=== PATIENT | female | born 1955 | race Caucasian/White ===

== ENCOUNTER → 2018-05-20 | Outpatient (CLI) | payer BC ==
[2018-05-20 09:36] LABS: Basophils # (auto) 0.1 uL; Basophils % (auto) 0.7 % (0.0-2.0); Eosinophils # (auto) 0.2 uL; Eosinophils % (auto) 2.3 % (0.0-7.0); Hematocrit 46.1 % (36.0-46.0); Hemoglobin 15.7 g/dL (12.2-16.2); Lymphocytes # (auto) 2.1 uL; Lymphocytes % (auto) 24.4 % (10.0-50.0); Mean Corpuscular Hemoglobin 30.5 pg (28.0-32.0); Mean Corpuscular Volume 89.5 fL (80.0-100.0); Monocytes # (auto) 0.5 uL; Monocytes % (auto) 6.3 % (0.0-12.0); Neutrophils # (auto) 5.7 uL; Neutrophils % (auto) 66.3 % (37.0-80.0); Nucleated Red Blood Cells % 0.1 %; Platelet Count (auto) 253 10^3/uL (140-450); Red Blood Cells 5.15 10^6/uL (4.0-5.20); Red Cell Distribution Width 13.4 % (11.8-14.3); White Blood Cell 8.7 10^3/uL (4.4-10.8)
[2018-05-20 10:22] LABS: Albumin 3.9 g/dL (3.4-5.0); Bilirubin, Total 0.5 mg/dL (0.2-1.0); Calcium 9.1 mg/dL (8.5-10.1); Potassium 4.5 mmol/L (3.5-5.1); Total Protein 7.3 g/dL (6.4-8.2)
== END | disposition home or self-care (01) ==
LOC: LAB 08:01
PROVIDERS: ATTEND Physician Assistant
DX: Z00.01 Encounter for general adult medical examination with abnormal findings (principal); E78.1 Pure hyperglyceridemia; M54.2 Cervicalgia; M19.90 Unspecified osteoarthritis, unspecified site; G89.29 Other chronic pain
CPT/HCPCS: 36415; 80053; 80061; 85025

== ENCOUNTER → 2018-09-30 | Outpatient (CLI) | payer BC, MEDICARE ==
[2018-09-30 08:08] LABS: Basophils # (auto) 0.1 uL; Basophils % (auto) 0.7 % (0.0-2.0); Eosinophils # (auto) 0.2 uL; Eosinophils % (auto) 2.7 % (0.0-7.0); Hematocrit 45.9 % (36.0-46.0); Hemoglobin 15.5 g/dL (12.2-16.2); Lymphocytes # (auto) 2.1 uL; Lymphocytes % (auto) 23.3 % (10.0-50.0); Mean Corpuscular Hemoglobin 29.9 pg (28.0-32.0); Mean Corpuscular Hgb Conc. 33.7 g/dL (32.0-36.0); Mean Corpuscular Volume 88.6 fL (80.0-100.0); Monocytes # (auto) 0.7 uL; Monocytes % (auto) 8.1 % (0.0-12.0); Neutrophils # (auto) 5.8 uL; Neutrophils % (auto) 65.2 % (37.0-80.0); Nucleated Red Blood Cells % 0.1 %; Platelet Count (auto) 265 10^3/uL (140-450); Red Blood Cells 5.18 10^6/uL (4.0-5.20); Red Cell Distribution Width 13.1 % (11.8-14.3); White Blood Cell 8.9 10^3/uL (4.4-10.8)
[2018-09-30 08:44] LABS: Albumin 3.8 g/dL (3.4-5.0); BUN/Creatinine Ratio 30.7; Bilirubin, Total 0.5 mg/dL (0.2-1.0); Calcium 9.3 mg/dL (8.5-10.1); Total Protein 7.3 g/dL (6.4-8.2)
== END | disposition home or self-care (01) ==
LOC: LAB 07:24
PROVIDERS: ATTEND Physician Assistant
DX: E78.2 Mixed hyperlipidemia (principal); G51.0 Bell's palsy; M54.2 Cervicalgia; M19.90 Unspecified osteoarthritis, unspecified site
CPT/HCPCS: 36415; 80053; 80061; 85025

== ENCOUNTER → 2019-12-13 | Outpatient (CLI) | payer BC ==
[2019-12-13 10:08] LABS: Basophils # (auto) 0.1 10 ^3/uL (0-0.2); Basophils % (auto) 0.6 % (0.0-2.0); Eosinophils # (auto) 0.1 10 ^3/uL (0-0.8); Eosinophils % (auto) 0.4 % (0.0-7.0); Hematocrit 46.5 % (36.0-46.0); Hemoglobin 15.5 g/dL (12.2-16.2); Lymphocytes # (auto) 2.3 10 ^3/uL (0.4-5.4); Mean Corpuscular Hemoglobin 29.5 pg (28.0-32.0); Mean Corpuscular Hgb Conc. 33.3 g/dL (32.0-36.0); Mean Corpuscular Volume 88.4 fL (80.0-100.0); Monocytes # (auto) 0.8 10 ^3/uL (0-1.3); Monocytes % (auto) 6.3 % (0.0-12.0); Neutrophils # (auto) 9.6 10 ^3/uL (1.6-8.6); Neutrophils % (auto) 74.7 % (37.0-80.0); Nucleated Red Blood Cells % 0.1 %; Platelet Count (auto) 307 10^3/uL (140-450); Red Blood Cells 5.26 10^6/uL (4.0-5.20); Red Cell Distribution Width 12.7 % (11.8-14.3); White Blood Cell 12.9 10^3/uL (4.4-10.8)
[2019-12-13 11:22] LABS: Albumin 3.9 g/dL (3.4-5.0); Calcium 8.8 mg/dL (8.5-10.1); Potassium 4.1 mmol/L (3.5-5.1)
[2019-12-13 11:27] LABS: Bilirubin, Total 0.4 mg/dL (0.2-1.0); Total Protein 7.6 g/dL (6.4-8.2)
== END | disposition home or self-care (01) ==
LOC: LAB 09:46
PROVIDERS: ATTEND Physician Assistant
DX: E78.2 Mixed hyperlipidemia (principal); M19.90 Unspecified osteoarthritis, unspecified site; R73.03 Prediabetes; M81.6 Localized osteoporosis [Lequesne]
CPT/HCPCS: 36415; 80053; 80061; 83036; 85025

== ENCOUNTER 2020-04-04 17:39 | Emergency (ER) | payer MEDICARE, BC ==
[~2020-04-04] VITALS: Ht 160 cm; Wt 85.3 kg
[2020-04-04 19:26] LABS: Urine Bacteria MANY /hpf (None Seen); Urine Blood 1+ /uL (Negative); Urine Mucus FEW (None Seen); Urine Specific Gravity 1.021 (1.001-1.035); Urine WBC 11 /hpf (0 - 5)
[2020-04-04] MEDS ORDERED: KETOROLAC TROMETH 60MG/2ML VIAL IM ONE (21:30)
[2020-04-04] MEDS ORDERED: CLINDAMYCIN 600 MG/4 ML VL IM ONE (21:30)
[2020-04-04 22:07] VITALS: BP 161/86
== END 2020-04-05 00:33 | disposition home or self-care (01) ==
LOC: ER 17:39
DX: N39.0 Urinary tract infection, site not specified (principal); F17.200 Nicotine dependence, unspecified, uncomplicated; M19.90 Unspecified osteoarthritis, unspecified site; Z88.0 Allergy status to penicillin; Z88.2 Allergy status to sulfonamides
CPT/HCPCS: 81001; 96372; 99284; J1885

== ENCOUNTER → 2021-02-13 | Outpatient (CLI) | payer MEDICARE, BC ==
[2021-02-13 09:16] LABS: Basophils # (auto) 0.1 10 ^3/uL (0-0.2); Basophils % (auto) 0.7 % (0.0-2.0); Eosinophils # (auto) 0.1 10 ^3/uL (0-0.8); Eosinophils % (auto) 1.5 % (0.0-7.0); Hematocrit 45.3 % (36.0-46.0); Hemoglobin 15.9 g/dL (12.2-16.2); Lymphocytes % (auto) 19.9 % (10.0-50.0); Mean Corpuscular Hemoglobin 30.9 pg (28.0-32.0); Mean Corpuscular Hgb Conc. 35.1 g/dL (32.0-36.0); Mean Corpuscular Volume 87.9 fL (80.0-100.0); Monocytes # (auto) 0.6 10 ^3/uL (0-1.3); Monocytes % (auto) 6.5 % (0.0-12.0); Neutrophils % (auto) 71.4 % (37.0-80.0); Platelet Count (auto) 247 10^3/uL (140-450); Red Blood Cells 5.15 10^6/uL (4.0-5.20); Red Cell Distribution Width 13.1 % (11.8-14.3); White Blood Cell 9.9 10^3/uL (4.4-10.8)
[2021-02-13 09:46] LABS: Albumin 3.8 g/dL (3.4-5.0); Calcium 8.9 mg/dL (8.5-10.1); Potassium 4.1 mmol/L (3.5-5.1)
[2021-02-13 09:51] LABS: BUN/Creatinine Ratio 24.7; Bilirubin, Total 0.5 mg/dL (0.2-1.0)
== END | disposition home or self-care (01) ==
LOC: LAB 08:21
PROVIDERS: ATTEND Physician Assistant
DX: I10 Essential (primary) hypertension (principal); E78.2 Mixed hyperlipidemia; R73.03 Prediabetes
CPT/HCPCS: 36415; 80053; 80061; 85025; 85049

== ENCOUNTER 2021-10-18 21:47 | Inpatient (IN) | payer MEDICARE, BC ==
[~2021-10-18] VITALS: Ht 160 cm; Wt 84.5 kg
[2021-10-18] MEDS ORDERED: amLODIPine BESYLATE 5 MG TAB PO ONE (22:00)
[2021-10-18 22:28] LABS: Basophils # (auto) 0 10 ^3/uL (0-0.2); Basophils % (auto) 0.5 % (0.0-2.0); Eosinophils # (auto) 0.1 10 ^3/uL (0-0.8); Eosinophils % (auto) 1.4 % (0.0-7.0); Hematocrit 40.8 % (36.0-46.0); Hemoglobin 14.3 g/dL (12.2-16.2); Lymphocytes % (auto) 20.4 % (10.0-50.0); Mean Corpuscular Hgb Conc. 35.1 g/dL (32.0-36.0); Mean Corpuscular Volume 85.5 fL (80.0-100.0); Monocytes # (auto) 0.6 10 ^3/uL (0-1.3); Monocytes % (auto) 6.5 % (0.0-12.0); Neutrophils # (auto) 7.2 10 ^3/uL (1.6-8.6); Neutrophils % (auto) 71.2 % (37.0-80.0); Nucleated Red Blood Cells % 0.1 %; Red Blood Cells 4.78 10^6/uL (4.0-5.20); Red Cell Distribution Width 12.9 % (11.8-14.3)
[2021-10-18 22:47] LABS: Albumin 3.7 g/dL (3.4-5.0); Calcium 9.1 mg/dL (8.5-10.1); Potassium 3.1 mmol/L (3.5-5.1)
[2021-10-18 22:53] LABS: BUN/Creatinine Ratio 14.3; Bilirubin, Total 0.4 mg/dL (0.2-1.0)
[2021-10-19] MEDS ORDERED: ASPirin 325 MG TAB PO ONE
[2021-10-19] MEDS ORDERED: DEXTROSE (50%) 50ML SYRG IV PRN ×2 (00:15)
[2021-10-19] MEDS ORDERED: ATORVASTATIN 20 MG TAB PO ONE (00:15)
[2021-10-19 01:10] LABS: INR 0.94 (0.9-1.15)
[2021-10-19] MEDS: SODIUM CHLORIDE 0.9% 1,000 ML IV SCH ×3 (03:39→18:45)
[2021-10-19] MEDS ORDERED: LOSA-69 PO (04:05)
[2021-10-19 05:00] VITALS: BP 148/66
[2021-10-19] MEDS: POTASSIUM CHL 10MEQ/50ML 50 ML IV SCH ×6 (06:00→13:00)
[2021-10-19] MEDS: ACCU-CHEK COMFORT CURVE STRIP VI SCH ×4 (06:00→11:59)
[2021-10-19] MEDS: InsuLIN REG 1unit/0.01ml Soln (100units/ml) SC SCH ×2 (06:00→11:59)
[2021-10-19 06:14] LABS: Basophils # (auto) 0.1 10 ^3/uL (0-0.2); Basophils % (auto) 0.7 % (0.0-2.0); Eosinophils # (auto) 0.2 10 ^3/uL (0-0.8); Eosinophils % (auto) 2.1 % (0.0-7.0); Hematocrit 37.5 % (36.0-46.0); Hemoglobin 13.3 g/dL (12.2-16.2); Lymphocytes % (auto) 24.5 % (10.0-50.0); Mean Corpuscular Hemoglobin 30.1 pg (28.0-32.0); Mean Corpuscular Hgb Conc. 35.4 g/dL (32.0-36.0); Monocytes # (auto) 0.7 10 ^3/uL (0-1.3); Neutrophils # (auto) 5.4 10 ^3/uL (1.6-8.6); Neutrophils % (auto) 64.7 % (37.0-80.0); Nucleated Red Blood Cells % 0.1 %; Red Blood Cells 4.41 10^6/uL (4.0-5.20); Red Cell Distribution Width 12.9 % (11.8-14.3); White Blood Cell 8.3 10^3/uL (4.4-10.8)
[2021-10-19 06:42] LABS: Potassium 3.2 mmol/L (3.5-5.1)
[2021-10-19 07:04] LABS: Albumin 3.2 g/dL (3.4-5.0); BUN/Creatinine Ratio 12.4; Bilirubin, Total 0.5 mg/dL (0.2-1.0); Calcium 8.5 mg/dL (8.5-10.1); Total Protein 6.1 g/dL (6.4-8.2)
[2021-10-19 08:15] VITALS: BP 154/59
[2021-10-19] MEDS ORDERED: FAMOTIDINE 20 MG TAB PO SCH (10:00)
[2021-10-19] MEDS: ASPirin-EC 325mg tab PO SCH (10:05)
[2021-10-19] MEDS: ENOXAPARIN SOD 40 MG/0.4 ML SYRINGE SC SCH (10:05)
[2021-10-19] MEDS: NICOTINE 7MG/24HR TOPICAL PATCH TD SCH (10:17)
[2021-10-19 11:45] VITALS: BP 157/65
[2021-10-19] MEDS ORDERED: METOPROLOL TARTRATE 50 MG TAB PO ONE (12:00)
[2021-10-19] MEDS ORDERED: CLOPIDOGREL 300 MG TAB PO ONE (16:15)
[2021-10-19 16:20] VITALS: BP 161/87
[2021-10-19] MEDS: METOPROLOL TARTRATE 50 MG TAB PO SCH (21:15)
[2021-10-19] MEDS: ATORVASTATIN 20 MG TAB PO SCH (21:15)
[2021-10-19 22:20] VITALS: BP 165/78
[2021-10-20] MEDS: SODIUM CHLORIDE 0.9% 1,000 ML IV SCH ×3 (02:41→18:40)
[2021-10-20 05:00] VITALS: BP 166/86
[2021-10-20 09:00] VITALS: BP 163/69
[2021-10-20] MEDS: ENOXAPARIN SOD 40 MG/0.4 ML SYRINGE SC SCH (09:44)
[2021-10-20] MEDS: CLOPIDOGREL BISULFATE 75 MG TAB PO SCH (09:44)
[2021-10-20] MEDS: METOPROLOL TARTRATE 50 MG TAB PO SCH ×2 (09:44→22:19)
[2021-10-20] MEDS: ASPirin-EC 325mg tab PO SCH (09:44)
[2021-10-20 13:00] VITALS: BP 125/53
[2021-10-20] MEDS: NICOTINE 7MG/24HR TOPICAL PATCH TD SCH (15:20)
[2021-10-20 17:00] VITALS: BP 164/82
[2021-10-20 22:00] VITALS: BP 151/69
[2021-10-20] MEDS: ATORVASTATIN 20 MG TAB PO SCH (22:19)
[2021-10-21] MEDS: SODIUM CHLORIDE 0.9% 1,000 ML IV SCH ×3 (03:57→18:45)
[2021-10-21 05:00] VITALS: BP 166/58
[2021-10-21 08:07] LABS: Urine Bacteria NONE SEEN /hpf (None Seen); Urine Blood 2+ /uL (Negative); Urine Specific Gravity 1.009 (1.001-1.035); Urine WBC 2 /hpf (0 - 5)
[2021-10-21 08:36] VITALS: BP 161/85
[2021-10-21] MEDS: NICOTINE 7MG/24HR TOPICAL PATCH TD SCH (10:05)
[2021-10-21] MEDS: CLOPIDOGREL BISULFATE 75 MG TAB PO SCH (10:06)
[2021-10-21] MEDS: ENOXAPARIN SOD 40 MG/0.4 ML SYRINGE SC SCH (10:06)
[2021-10-21] MEDS: ASPirin-EC 325mg tab PO SCH (10:06)
[2021-10-21] MEDS: METOPROLOL TARTRATE 50 MG TAB PO SCH ×2 (10:06→21:49)
[2021-10-21 13:00] VITALS: BP 165/85
[2021-10-21 17:00] VITALS: BP 131/76
[2021-10-21] MEDS ORDERED: cloNIDine HCL 0.1 MG TAB PO PRN (20:30)
[2021-10-21] MEDS: ATORVASTATIN 20 MG TAB PO SCH (21:49)
[2021-10-22] MEDS: SODIUM CHLORIDE 0.9% 1,000 ML IV SCH ×3 (04:27→18:50)
[2021-10-22 05:00] VITALS: BP 121/65
[2021-10-22] MEDS: CLOPIDOGREL BISULFATE 75 MG TAB PO SCH (08:39)
[2021-10-22] MEDS: ASPirin-EC 325mg tab PO SCH (08:39)
[2021-10-22] MEDS: METOPROLOL TARTRATE 50 MG TAB PO SCH ×2 (08:39→21:43)
[2021-10-22] MEDS: NICOTINE 7MG/24HR TOPICAL PATCH TD SCH (08:40)
[2021-10-22] MEDS: ENOXAPARIN SOD 40 MG/0.4 ML SYRINGE SC SCH (08:40)
[2021-10-22 08:46] VITALS: BP 149/77
[2021-10-22 12:34] VITALS: BP 162/82
[2021-10-22 16:41] VITALS: BP 159/72
[2021-10-22] MEDS: ATORVASTATIN 20 MG TAB PO SCH (21:43)
[2021-10-22 23:17] VITALS: BP 159/77
[2021-10-23] MEDS: SODIUM CHLORIDE 0.9% 1,000 ML IV SCH ×2 (02:45→10:45)
[2021-10-23 04:38] VITALS: BP 162/86
[2021-10-23 08:59] VITALS: BP 162/76
[2021-10-23] MEDS: ASPirin-EC 325mg tab PO SCH (09:51)
[2021-10-23] MEDS: CLOPIDOGREL BISULFATE 75 MG TAB PO SCH (09:52)
[2021-10-23] MEDS: METOPROLOL TARTRATE 50 MG TAB PO SCH ×2 (09:52→22:00)
[2021-10-23] MEDS: ENOXAPARIN SOD 40 MG/0.4 ML SYRINGE SC SCH (09:54)
[2021-10-23] MEDS: NICOTINE 7MG/24HR TOPICAL PATCH TD SCH (10:00)
[2021-10-23] MEDS ORDERED: LOPERAMIDE HCL 2 MG CAP/TAB PO PRN (12:15)
[2021-10-23] MEDS ORDERED: LOPERAMIDE HCL 2 MG CAP/TAB PO ONE (12:15)
[2021-10-23 12:42] VITALS: BP 158/65
[2021-10-23] MEDS ORDERED: IODIXANOL 320MG/ML 100ML BTL IV ONE ×3 (12:57→14:34)
[2021-10-23] MEDS ORDERED: IOHEXOL 350 MG/ML 100ML IJ ONE ×2 (12:57→13:00)
[2021-10-23] MEDS ORDERED: GLYCOPYRROLATE 0.2 MG/ML 1ML VIAL ONE ×2 (13:38→14:39)
[2021-10-23] MEDS ORDERED: ATROPINE SULF 1 MG/10ml SYR ONE (13:39)
[2021-10-23] MEDS ORDERED: ANGIOMAX 250 MG VIAL IV ONE (13:40)
[2021-10-23] MEDS ORDERED: SODIUM CHL 0.9% 50 ML ONE (13:40)
[2021-10-23] MEDS ORDERED: EPINEPHrine HCL 1 MG/10 ML SYRG ONE (13:40)
[2021-10-23] MEDS ORDERED: PHENYLEPHRINE HCL 10 MG/ML VL ONE (13:46)
[2021-10-23 22:00] VITALS: BP_SYST 127; BP_SYST 164; BP_DIAS 50; BP_DIAS 75
[2021-10-23] MEDS: ATORVASTATIN 20 MG TAB PO SCH (22:03)
[2021-10-23] MEDS: ACETAMINOPHEN 325 MG TAB PO PRN (22:25)
[2021-10-23] MEDS: hydrALAZINE HCL 20 MG/ML VL IV PRN (22:25)
[2021-10-24] MEDS: SODIUM CHLORIDE 0.9% 1,000 ML IV SCH ×3 (00:49→09:31)
[2021-10-24] MEDS: ACETAMINOPHEN 325 MG TAB PO PRN ×3 (03:35→21:37)
[2021-10-24 05:00] VITALS: BP 137/48
[2021-10-24 09:00] VITALS: BP 177/50
[2021-10-24] MEDS: ASPirin-EC 325mg tab PO SCH (09:29)
[2021-10-24] MEDS: METOPROLOL TARTRATE 50 MG TAB PO SCH ×2 (09:29→21:35)
[2021-10-24] MEDS: ENOXAPARIN SOD 40 MG/0.4 ML SYRINGE SC SCH (09:30)
[2021-10-24] MEDS: CLOPIDOGREL BISULFATE 75 MG TAB PO SCH (09:30)
[2021-10-24] MEDS: NICOTINE 7MG/24HR TOPICAL PATCH TD SCH (09:31)
[2021-10-24] MEDS: hydrALAZINE HCL 20 MG/ML VL IV PRN (09:32)
[2021-10-24 13:27] VITALS: BP 132/65
[2021-10-24 17:06] VITALS: BP 154/58
[2021-10-24] MEDS: ATORVASTATIN 20 MG TAB PO SCH (21:34)
[2021-10-24 22:00] VITALS: BP 138/68
[2021-10-25 05:00] VITALS: BP 141/71
[2021-10-25 08:00] VITALS: BP 148/68
[2021-10-25 09:00] VITALS: BP 148/68
[2021-10-25] MEDS ORDERED: ATO40T PO (10:35)
[2021-10-25] MEDS ORDERED: NIC21P TOP (10:35)
[2021-10-25] MEDS ORDERED: ASPI1TAB20 PO (10:35)
[2021-10-25] MEDS ORDERED: CLOP75TA28 PO (10:35)
[2021-10-25] MEDS: ASPirin-EC 325mg tab PO SCH (10:37)
[2021-10-25] MEDS: METOPROLOL TARTRATE 50 MG TAB PO SCH (10:38)
[2021-10-25] MEDS: CLOPIDOGREL BISULFATE 75 MG TAB PO SCH (10:38)
[2021-10-25] MEDS: ENOXAPARIN SOD 40 MG/0.4 ML SYRINGE SC SCH (10:38)
[2021-10-25] MEDS: NICOTINE 7MG/24HR TOPICAL PATCH TD SCH (10:39)
[2021-10-25] MEDS ORDERED: METO25TA5 PO (10:40)
== END 2021-10-25 12:55 | disposition home health service (06) | DRG 35 ==
LOC: ER 21:47 → TELE 10-19 00:13 → TELE-EAST 10-19 02:39
PROVIDERS: ADMIT Internal Medicine; ATTEND Family Medicine
PROC: 037L3DZ Dilation of Left Internal Carotid Artery with Intraluminal Device, Percutaneous Approach (ICD-10-PCS; principal; 2021-10-23)
PROC: B317YZZ Fluoroscopy of Left Internal Carotid Artery using Other Contrast (ICD-10-PCS; 2021-10-23)
PROC: B315YZZ Fluoroscopy of Bilateral Common Carotid Arteries using Other Contrast (ICD-10-PCS; 2021-10-23)
DX: I63.512 Cerebral infarction due to unspecified occlusion or stenosis of left middle cerebral artery (principal); I16.1 Hypertensive emergency; G81.91 Hemiplegia, unspecified affecting right dominant side; E66.9 Obesity, unspecified; E78.5 Hyperlipidemia, unspecified; E87.6 Hypokalemia; J44.9 Chronic obstructive pulmonary disease, unspecified; R47.01 Aphasia; M19.90 Unspecified osteoarthritis, unspecified site; I10 Essential (primary) hypertension; I65.22 Occlusion and stenosis of left carotid artery; F17.210 Nicotine dependence, cigarettes, uncomplicated; R47.02 Dysphasia; Z20.822 Contact with and (suspected) exposure to COVID-19; Z79.02 Long term (current) use of antithrombotics/antiplatelets; Z95.820 Peripheral vascular angioplasty status with implants and grafts; Z79.82 Long term (current) use of aspirin; Z79.899 Other long term (current) drug therapy; Z82.3 Family history of stroke; Z82.49 Family history of ischemic heart disease and other diseases of the circulatory system; Z88.0 Allergy status to penicillin; Z88.2 Allergy status to sulfonamides; Z71.6 Tobacco abuse counseling
CPT/HCPCS: 36228; 36415; 37215; 70450; 70551; 71045; 80053; 80061; 81001; 83036; 83090; 84443; 84484; 85025; 85610; 92523; 92610; 93005; 93306; 93886; 97116; 97163; 97530; 99152; 99153; G0378; Q9967

== ENCOUNTER 2021-10-29 19:18 | Emergency (ER) | payer MEDICARE, OTHER ==
[~2021-10-29 19:18] MED LIST: ASPI1TAB20 PO; ATO40T PO; CLOP75TA28 PO; LOSA-69 PO; METO25TA5 PO; NIC21P TOP
[2021-10-29] MEDS ORDERED: SUCCINYLCHOLINE CHLORIDE 20 MG/ML 10ML VIAL IV ONE ×2 (19:51→21:30)
[2021-10-29] MEDS ORDERED: ETOMIDATE (2MG/ML) 20ML VIAL IV ONE (19:51)
[2021-10-29 20:02] LABS: Basophils # (auto) 0.1 10 ^3/uL (0-0.2); Basophils % (auto) 0.6 % (0.0-2.0); Eosinophils # (auto) 0.2 10 ^3/uL (0-0.8); Eosinophils % (auto) 1.3 % (0.0-7.0); Hematocrit 36.2 % (36.0-46.0); Hemoglobin 12.3 g/dL (12.2-16.2); Lymphocytes # (auto) 2.2 10 ^3/uL (0.4-5.4); Lymphocytes % (auto) 18.6 % (10.0-50.0); Mean Corpuscular Hemoglobin 29.5 pg (28.0-32.0); Mean Corpuscular Volume 86.8 fL (80.0-100.0); Monocytes # (auto) 0.8 10 ^3/uL (0-1.3); Monocytes % (auto) 6.9 % (0.0-12.0); Neutrophils # (auto) 8.6 10 ^3/uL (1.6-8.6); Neutrophils % (auto) 72.6 % (37.0-80.0); Red Blood Cells 4.17 10^6/uL (4.0-5.20); Red Cell Distribution Width 13.1 % (11.8-14.3); White Blood Cell 11.8 10^3/uL (4.4-10.8)
[2021-10-29] MEDS ORDERED: fentaNYL Drip 2500mCg/250mlNS 250 ML IV ONE (20:07)
[2021-10-29] MEDS ORDERED: PROPOFOL 100 ML IV ONE (20:07)
[2021-10-29] MEDS ORDERED: PROPOFOL 100 ML IV SCH (20:15)
[2021-10-29] MEDS ORDERED: fentaNYL Drip 2500mCg/250mlNS 250 ML IV SCH (20:15)
[2021-10-29 20:24] LABS: Albumin 3.5 g/dL (3.4-5.0); Calcium 8.7 mg/dL (8.5-10.1); INR 0.95 (0.9-1.15); Potassium 3.7 mmol/L (3.5-5.1)
[2021-10-29 20:30] LABS: BUN/Creatinine Ratio 16.9; Bilirubin, Total 0.5 mg/dL (0.2-1.0); Total Protein 6.7 g/dL (6.4-8.2)
[2021-10-29] MEDS ORDERED: levETIRAcetam 500 MG/5ML INJ IV ONE (20:38)
[2021-10-29] MEDS ORDERED: NOREPINEPHRINE 8 MG/250ML KIT 250 ML IV ONE (20:51)
[2021-10-29 21:13] VITALS: BP 116/48
[2021-10-29] MEDS: ETOMIDATE (2MG/ML) 20ML VIAL IV ONE ×2 (21:23→21:24)
[2021-10-29] MEDS ORDERED: NOREPINEPHRINE 8 MG/250ML KIT 250 ML IV SCH (21:30)
[2021-10-30 00:17] LABS: Urine Bacteria FEW /hpf (None Seen); Urine Blood TRACE /uL (Negative); Urine Mucus FEW (None Seen); Urine Specific Gravity 1.023 (1.001-1.035); Urine WBC 2 /hpf (0 - 5)
== END 2021-10-29 21:30 | disposition short-term general hospital (02) ==
LOC: EDBD 19:18 → ER 19:20
DX: I61.8 Other nontraumatic intracerebral hemorrhage (principal); I10 Essential (primary) hypertension; F17.210 Nicotine dependence, cigarettes, uncomplicated; Z79.01 Long term (current) use of anticoagulants; Z79.82 Long term (current) use of aspirin; Z79.899 Other long term (current) drug therapy; Z88.2 Allergy status to sulfonamides; Z88.0 Allergy status to penicillin; Z20.822 Contact with and (suspected) exposure to COVID-19
CPT/HCPCS: 36415; 36600; 70450; 71045; 80053; 81001; 82805; 84484; 85025; 85610; 87070; 87205; 87426; 93005; 96365; 96368; 99152; 99291; J0330; J1953; J2704; J7030; J7060; 94002